=== PATIENT | female | born 1995 | race Caucasian/White ===

== ENCOUNTER 2020-09-18 16:58 | Emergency (ER) | payer OTHER ==
[2020-09-18 17:22] VITALS: BP 111/60; PULSE 82; TEMP 98.2; BMI 31.1
[2020-09-18 20:20] LABS: BASO % 0.3 % (0-2.0); EOS % 1.5 % (0-4.5); HEMOGLOBIN 12.1 GM/dL (10.7-15.3); LYMPH % 23.2 % (8-40); MCH 33.2 pg (25.7-33.7); MCHC 34.7 g/dl (32.0-36.0); MEAN CELL VOLUME 95.7 fl (80-96); MEAN PLT VOLUME 8.1 fl (7.5-11.1); MONO % 5.1 % (3.8-10.2); NEUT % 69.9 % (42.8-82.8); PLATELET COUNT 377 K/MM3 (134-434); RBC 3.66 M/mm3 (3.60-5.2); RDW 13.8 % (11.6-15.6); WHITE BLOOD COUNT 10.3 K/mm3 (4.0-10.0)
[2020-09-18 20:22] LABS: URINE APPEARANCE CLEAR; URINE BILIRUBIN NEGATIVE (NEGATIVE); URINE COLOR YELLOW; URINE GLUCOSE (UA) NEGATIVE (NEGATIVE); URINE KETONE NEGATIVE (NEGATIVE); URINE LEUK ESTERASE NEGATIVE (NEGATIVE); URINE NITRITE NEGATIVE (NEGATIVE); URINE PROTEIN NEGATIVE (NEGATIVE); URINE UROBILINOGEN 0.2 mg/dL (0.2-1.0)
[2020-09-18 20:52] LABS: POTASSIUM 3.8 mmol/L (3.5-5.1)
[2020-09-18 21:16] LABS: ALBUMIN 3.5 g/dl (3.4-5.0); BILIRUBIN,TOTAL 0.3 mg/dL (0.2-1); BLOOD UREA NITROGEN 10.7 mg/dL (7-18); CREATININE 0.6 mg/dL (0.55-1.3); TOT PROT 7.3 g/dl (6.4-8.2)
== END 2020-09-18 21:28 | disposition home or self-care (01) ==
LOC: JER 16:58
DX: O20.8 Other hemorrhage in early pregnancy (principal)
CPT/HCPCS: 36415; 76815; 80053; 81003; 84702; 85025; 87086; 99284-25

== ENCOUNTER 2020-11-22 14:15 | Emergency (ER) | payer OTHER ==
[2020-11-22 14:40] VITALS: BP 107/63; PULSE 92; TEMP 98.5; BMI 33.8
== END 2020-11-22 15:37 | disposition home or self-care (01) ==
LOC: JERFT 14:15 → JER 14:15 → JERFT 15:37
DX: B02.8 Zoster with other complications (principal)
CPT/HCPCS: 99281-25

== ENCOUNTER 2021-04-07 10:40 | Inpatient (IN) | payer OTHER ==
[2021-04-07] MEDS: ELECTROLYTE-148 SOLN 1,000 ML IV SCH ×2 (11:30→19:10)
[2021-04-07 11:54] VITALS: BMI 36.7
[2021-04-07 12:08] LABS: BASO % 0.9 % (0-2.0); EOS % 1.6 % (0-4.5); HEMATOCRIT 33.6 % (32.4-45.2); HEMOGLOBIN 12.1 GM/dL (10.7-15.3); LYMPH % 23.2 % (8-40); MCH 34.5 pg (25.7-33.7); MCHC 35.9 g/dl (32.0-36.0); MEAN CELL VOLUME 96.2 fl (80-96); MEAN PLT VOLUME 7.9 fl (7.5-11.1); MONO % 5.1 % (3.8-10.2); NEUT % 69.2 % (42.8-82.8); PLATELET COUNT 294 10^3/uL (134-434); RDW 14.8 % (11.6-15.6); WHITE BLOOD COUNT 8.2 K/mm3 (4.0-10.0)
[2021-04-07 12:20] LABS: INR 0.89 (0.83-1.09); PROTHROMBIN TIME (PATIENT) 10.8 SEC (9.7-13.0)
[2021-04-07 12:23] LABS: ACTIVATED PTT 30.6 SECONDS (25.2-36.5)
[2021-04-07 12:29] LABS: BLOOD UREA NITROGEN 9.2 mg/dL (7-18); CALCIUM 7.9 mg/dL (8.5-10.1)
[2021-04-07 12:32] LABS: CREATININE 0.7 mg/dL (0.55-1.3)
[2021-04-07] MEDS ORDERED: OXYTOCIN 30 UNITS in 0.9% NS 30 UNIT/500 ML INFUS.BAG IVPB SCH (13:30)
[2021-04-07] MEDS ORDERED: OXYTOCIN 30 UNITS in 0.9% NS 30 UNIT/500 ML INFUS.BAG IVPB ONE (13:31)
[2021-04-08] MEDS ORDERED: AMPICILLIN - 2 GM in SODIUM CHLORIDE 100 ML IVPB ONE (00:07)
[2021-04-08] MEDS ORDERED: AMPICILLIN SODIUM 2 GM VIAL ONE (00:16)
[2021-04-08] MEDS ORDERED: FENTANYL/BUPIVACAINE/NS/PF - PCEA - 50 ML DISP.SYRIN EP ONE ×2 (00:33→05:26)
[2021-04-08] MEDS ORDERED: PCA PUMP NR ONE (00:34)
[2021-04-08] MEDS ORDERED: BUPIVACAINE HCL/PF 0.25% (2.5MG/ML) 10 ML VIAL ONE (00:42)
[2021-04-08] MEDS ORDERED: NALOXONE HCL 0.4 MG/ML VIAL IVPUSH PRN (01:09)
[2021-04-08] MEDS ORDERED: FENTANYL/BUPIVACAINE/NS/PF - PCEA - 50 ML DISP.SYRIN EP SCH (01:15)
[2021-04-08] MEDS ORDERED: AMPICILLIN SODIUM 1 GM VIAL ONE (04:04)
[2021-04-08] MEDS: AMPICILLIN - 1 GM in SODIUM CHLORIDE 100 ML IVPB SCH ×2 (04:10→08:27)
[2021-04-08] MEDS ORDERED: LIDOCAINE HCL 1% PRESERVATIVE FREE - 30ML VIAL ONE (05:47)
[2021-04-08] MEDS ORDERED: OXYTOCIN 20 UNITS in 0.9% NS 20 UNIT/1,000 ML INFUS.BAG IV ONE (05:47)
[2021-04-08] MEDS ORDERED: BISACODYL 10 MG SUPP.RECT RC PRN (06:30)
[2021-04-08] MEDS ORDERED: BENZOCAINE 20% 57 GM BOTTLE TP PRN (06:30)
[2021-04-08] MEDS ORDERED: BENZOCAINE 28 GM HEMORRHOIDAL OINTMENT TP PRN (06:30)
[2021-04-08] MEDS ORDERED: METHYLERGONOVINE MALEATE 0.2 MG/1 ML AMP IM PRN (06:30)
[2021-04-08] MEDS ORDERED: WITCH HAZEL 50% (TUCKS) 40 PAD/JAR PAD TP PRN (06:30)
[2021-04-08] MEDS ORDERED: OXYTOCIN 20 UNITS in 0.9% NS 20 UNIT/1,000 ML INFUS.BAG IV SCH (06:30)
[2021-04-08] MEDS ORDERED: IBUPROFEN 600 MG TABLET (FP) PO ONE (08:23)
[2021-04-08] MEDS ORDERED: ACETAMINOPHEN 325 MG TABLET (FP) ONE (08:23)
[2021-04-08] MEDS: IBUPROFEN 600 MG TABLET (FP) PO PRN ×2 (08:25→15:36)
[2021-04-08] MEDS: ACETAMINOPHEN 325 MG TABLET (FP) PO PRN ×2 (08:25→20:33)
[2021-04-08 09:56] LABS: RETICULOCYTES 3.52 % (0.5-1.5)
[2021-04-08 10:16] LABS: URIC ACID 7.8 mg/dL (2.6-7.2)
[2021-04-08] MEDS: PRENATAL VITAMINS W/ FOLIC ACID TABLET (FP) PO SCH (10:26)
[2021-04-08] MEDS ORDERED: PRENATAL VITAMINS W/ FOLIC ACID TABLET (FP) PO ONE (10:29)
[2021-04-08 14:49] LABS: POC NITRAZINE POS
[2021-04-09] MEDS: IBUPROFEN 600 MG TABLET (FP) PO PRN ×2 (02:00→09:03)
[2021-04-09] MEDS: PRENATAL VITAMINS W/ FOLIC ACID TABLET (FP) PO SCH (09:03)
[2021-04-09 11:46] LABS: BASO % 0.6 % (0-2.0); EOS % 1.7 % (0-4.5); HEMATOCRIT 35.1 % (32.4-45.2); HEMOGLOBIN 12.6 GM/dL (10.7-15.3); LYMPH % 30.6 % (8-40); MCH 35.1 pg (25.7-33.7); MCHC 35.9 g/dl (32.0-36.0); MEAN CELL VOLUME 97.8 fl (80-96); MEAN PLT VOLUME 8.2 fl (7.5-11.1); MONO % 3.2 % (3.8-10.2); NEUT % 63.9 % (42.8-82.8); PLATELET COUNT 275 10^3/uL (134-434); RBC 3.59 M/mm3 (3.60-5.2); RDW 14.7 % (11.6-15.6)
[2021-04-09 12:22] VITALS: BP 131/88; PULSE 60; TEMP 97.9
[2021-04-09] MEDS ORDERED: SENNOSIDES/DOCUSATE COMBO (SENNA PLUS) TABLET (UD) PO PRN (22:00)
== END 2021-04-09 15:05 | disposition home or self-care (01) | DRG 560 ==
LOC: JDEL 10:40 → JLDR 11:21 → J3W 04-08 10:50
PROVIDERS: ADMIT Student in an Organized Health Care Education/Training Program; ATTEND Student in an Organized Health Care Education/Training Program
PROC: 3E033VJ Introduction of Other Hormone into Peripheral Vein, Percutaneous Approach (ICD-10-PCS; 2021-04-07)
PROC: 10E0XZZ Delivery of Products of Conception, External Approach (ICD-10-PCS; principal; 2021-04-08)
DX: O42.02 Full-term premature rupture of membranes, onset of labor within 24 hours of rupture (principal); O34.219 Maternal care for unspecified type scar from previous cesarean delivery; Z3A.38 38 weeks gestation of pregnancy; Z37.0 Single live birth
CPT/HCPCS: 36415; 59409; 80048; 82570; 82977; 83010; 83986-QW; 84156; 84450; 84460; 84550; 85025; 85032; 85045; 85610; 85730; 86780; 86850; 86900; 86901; C9803; U0003; U0005